=== PATIENT | female | born 1995 | race American Indian/Alaskan Native ===

== ENCOUNTER 2017-07-11 11:21 | Emergency (ER) | payer SELFPAY ==
[2017-07-11] MEDS ORDERED: TORADOL IM ONE (13:04)
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
[2017-07-11 13:43] VITALS: BP 125/76
== END 2017-07-11 13:44 | disposition home or self-care (01) ==
LOC: ED 11:21
DX: S16.1XXA Strain of muscle, fascia and tendon at neck level, initial encounter (principal); F17.200 Nicotine dependence, unspecified, uncomplicated; X58.XXXA Exposure to other specified factors, initial encounter; Y93.89 Activity, other specified; Y92.89 Other specified places as the place of occurrence of the external cause; Y99.8 Other external cause status
CPT/HCPCS: 96372; 99282; J1885